=== PATIENT | female | born 1975 | race Caucasian/White ===

== ENCOUNTER 2023-04-10 07:47 | Observation (INO) ==
--- NOTE | 2023-03-20 11:55 | PAT Medication Instructions ---
Medication Instructions Date of Service March 20, 2023 Home Medications multivitamin 1 tab PO QAM triamterene 37.5 mg-hydrochlorothiazide 25 mg capsule 1 cap PO QAM Lactobacil.acidophilus-Bifido.animalis 5 billion cell sprinkle capsule (Probiotic) 2 cap PO QAM calcium carbonate 200 mg calcium (500 mg) chewable tablet (Tums) 200 mg PO BID PRN Acid Reflux loratadine 10 mg tablet (Claritin) 10 mg PO QAM semaglutide (weight loss) 2.4 mg/0.75 mL subcutaneous pen injector (Wegovy) 2.4 mg subcut Q7D Continue as directed semaglutide (weight loss) 2.4 mg/0.75 mL subcutaneous pen injector (Wegovy) 2.4 mg subcut Q7D DO NOT take the morning of surgery multivitamin 1 tab PO QAM triamterene 37.5 mg-hydrochlorothiazide 25 mg capsule 1 cap PO QAM Lactobacil.acidophilus-Bifido.animalis 5 billion cell sprinkle capsule (Probiotic) 2 cap PO QAM calcium carbonate 200 mg calcium (500 mg) chewable tablet (Tums) 200 mg PO BID PRN Acid Reflux loratadine 10 mg tablet (Claritin) 10 mg PO QAM Take evening before surgery calcium carbonate 200 mg calcium (500 mg) chewable tablet (Tums) 200 mg PO BID PRN Acid Reflux (if needed) OTHERWISE NOTHING TO EAT OR DRINK AFTER MIDNIGHT Other Notes If you have any questions please call us at [phone] or [phone] or [phone] or [phone]
--- NOTE | 2023-03-26 10:17 | History & Physical Report ---
Date of Service March 26, 2023 date of surgery: 04/10/23 Procedure: Left Total Knee Arthroplasty Surgeon: Venkat Infante Assessment & Plan (1) Arthritis of knee, left: Plan: Risks and benefits of procedure discussed in detail today, patient would like to proceed with a Left total knee replacement at [facility] as scheduled. Will place on ASA 81mg po bid x 1 month post op, f/u 2 weeks post op for routine post-operative care and x-ray, sooner if having any problems. will make arrangements for HHPT at the time of discharge, she is unsure at this time OPJ vs staying over night. At this point in time, has failed conservative measures and would like to proceed with surgical intervention. The risks and benefits have been discussed including, but not limited to, risk of infection, nerve injury, stiffness, loss of motion, failure to improve, etc. Reasonable outcomes and options of treatment were discussed. An explanation of appropriate alternatives to the procedure that may be advantageous were discussed and their risks and benefits, as well as the risks and benefits of not proceeding with treatment. I offered to answer any additional inquiries concerning the treatment involved. All the patient's questions were answered. The patient is agreeable, understanding of the treatment plan and alternatives, and wishes to proceed with the treatment plan. History of Present Illness Chief Complaint: left knee pain Primary Care Provider: Rubén Messer MD Consuelo is a pleasant 47-year-old female who presents for preop evaluation prior to her left total knee replacement scheduled for April 10. She is having pain in his knee for several months now which is gradually worsened and is now affecting her daily activities including walking and standing. She underwent viscosupplementation earlier this year with no relief. X-rays were taken which show advanced degenerative changes to the left knee with overall varus alignment. At this point time she has failed conservative measures and would like to proceed with a left total knee replacement Allergies Allergy/AdvReac Type Severity Reaction Status Date / Time No Known Allergies Allergy Verified 03/16/23 12:20 Home Medications Medication Instructions Recorded Confirmed Type multivitamin 1 tab PO QAM 02/20/22 03/16/23 History triamterene 37.5 1 cap PO QAM 02/20/22 03/16/23 History mg-hydrochlorothiazide 25 mg capsule Lactobacil.acidophilus-Bifido.animalis 2 cap PO QAM 03/16/23 03/16/23 History 5 billion cell sprinkle capsule (Probiotic) calcium carbonate 200 mg calcium 200 mg PO BID PRN Acid Reflux 03/16/23 03/16/23 History (500 mg) chewable tablet (Tums) loratadine 10 mg tablet (Claritin) 10 mg PO QAM 03/16/23 03/16/23 History semaglutide (weight loss) 2.4 2.4 mg subcut Q7D 03/16/23 03/16/23 History mg/0.75 mL subcutaneous pen injector (Wegovy) Past Med/Surg History Medical History Acid reflux Mild Arthritis Knees History of COVID-19 10/2020- fatigue, fever, loss of taste/smell > resolved Hypertension Morbid obesity Surgical History History of appendectomy History of cholecystectomy History of colonoscopy History of incisional hernia repair History of tonsillectomy and adenoidectomy [place] teeth removed Family History Other No family history of adverse response to anesthesia Social History Smoking Status: Never smoker Second Hand Exposure: Yes (as a child); Hx Alcohol Use: Yes Alcohol type: beer, wine and hard liquor Preferred Language: [place] [employer]ating [employer] Mechanic Required: No Beliefs That Will Affect Care: None Current Living Situation: Family Feels Safe at Home: Yes Safety Concerns: Feels Safe At This Time Assistive Devices: Contacts and Glasses Review of Systems Review of Systems: All systems reviewed & are unremarkable except as noted in HPI & below Constitutional: no fever, no chills and no sweats Respiratory: no cough and no dyspnea Cardiovascular: no chest pain, no dyspnea and no orthopnea Gastrointestinal: no abdominal pain, no nausea and no vomiting Musculoskeletal: as per Subjective / HPI Physical Exam Physical Exam: HT: 5ft 5.5in WT: 115 kg Constitutional: WD/WN, vitals as above no acute distress Respiratory: normal respiratory effort, lungs clear to auscultation no respiratory distress, no labored breathing and does not use accessory muscles Cardiovascular: RRR, no murmur, no edema Gastrointestinal (Abdomen): normal bowel sounds, soft, nontender, no hepatosplenomegaly Musculoskeletal: Knee: + knee abnormal to inspection (LEFT KNEE: ), + effusion (+1 effusion), + limited ROM of knee (ROM 0/3/110), + knee ROM with crepitation, + joint line tenderness (medial joint line) and + Olamide's sign positive; no deformity, no skin erythema, no ecchymosis, no valgus laxity, no varus laxity, anterior drawer test negative, Nicholas's sign negative and pivot shift test negative Results & Data Results & Data Diagnostic Findings Left Knee X-ray: left knee series confirms advanced degenerative changes to the left knee, greatest medial compartments and patellofemoral joint, showing joint space narrowing, osteophyte formation and subchondral sclerosis. no acute bony pathology noted.
--- NOTE | 2023-03-27 09:18 | Anesthesiology Consultation ---
Date of Service March 27, 2023 Assessment & Plan (1) Encounter for pre-operative examination: - COVID screening: Per assessment on 03/27: No known COVID-19 positive contacts or current COVID-19 related symptoms. Travel screen negative. Patient vaccinated. At surgeon discretion if preop Covid testing being done. - Outpatient joint assessment: Pt currently scheduled for inpatient pathway. If surgeon requests review for outpatient joint pathway, patient is an acceptable candidate for outpatient joint program from anesthesia standpoint pending surgeon's office assessment that patient is motivated, has good support and completes Same Day Joint Program preop requirements. Chart Review Chart Review: Acceptable Risk for Surgery and Patient seen in Pre Admission Testing Teaching & Discussion Pre-Anesthesia Teaching/Discussion Notes: Instructed NPO after midnight before surgery,except medications with 15 cc of water. Medication instructions provided according to the PAT guidelines. History Surgery Operation Date: 04/10/23 08:45 Proposed Procedures p Left Total Knee Arthroplasty - Venkat Infante DO Height/Weight Height: 5 ft 5.5 in Weight: 120.6 kg Allergies Allergy/AdvReac Type Severity Reaction Status Date / Time No Known Allergies Allergy Verified 03/16/23 12:20 Medications Home Medications Medication Instructions Recorded Confirmed Last Taken multivitamin 1 tab PO QAM 02/20/22 03/16/23 02/22/22 triamterene 37.5 1 cap PO QAM 02/20/22 03/16/23 02/22/22 mg-hydrochlorothiazide 25 mg capsule Lactobacil.acidophilus-Bifido.animalis 2 cap PO QAM 03/16/23 03/16/23 Unknown 5 billion cell sprinkle capsule (Probiotic) calcium carbonate 200 mg calcium 200 mg PO BID PRN Acid Reflux 03/16/23 03/16/23 Unknown (500 mg) chewable tablet (Tums) loratadine 10 mg tablet (Claritin) 10 mg PO QAM 03/16/23 03/16/23 Unknown semaglutide (weight loss) 2.4 2.4 mg subcut Q7D 03/16/23 03/16/23 Unknown mg/0.75 mL subcutaneous pen injector (Wegovy) Past Medical History Medical History Acid reflux Mild Arthritis Knees History of COVID-19 10/2020- fatigue, fever, loss of taste/smell > resolved Hypertension Morbid obesity Exercise / Class Metabolic Activity II 4-5 Yardwork/Stairs/Walk up hill Past Family History Family History Other No family history of adverse response to anesthesia Past Surgical History Surgical History History of appendectomy History of cholecystectomy History of colonoscopy History of incisional hernia repair History of tonsillectomy and adenoidectomy [place] teeth removed Past Anesthesia History No Hx of Anesthesia Complications and No Family Hx of Anesthesia Complications History of PONV No Hx of PONV and No Hx of Motion Sickness Social History Smoking Status: Never smoker Do You Dip or Chew Tobacco: No Hx Alcohol Use: Yes Alcohol type: beer, wine and hard liquor alcohol intake frequency: a few times a month Hx Substance Use: No substance use type: does not use Review of Systems Chronic seasonal allergies: post-nasal drip + watery eyes, unchanged. Patient denies chest pain, shortness of breath, dyspnea on exertion, fever, chills, cough, wheezing, palpitations. Physical Exam Vital Signs VITALS BP 131/86 P 77 TEMP 98.1 SP02 97%RA RESP 16 PHYSICAL Full cervical extension range of motion. Full TMJ range of motion. TMD 4 finger breaths Mallampati Score 2 Dentition: missing sides Lungs: clear throughout to auscultation Cardiac: regular rate and rhythm, no murmurs noted Spine: normal Carotid arteries: negative bruit Extremities: non-pitting LE edema Lab Results Anesthesia Preop Results Results Anesthesia Widget: WBC 3.82 K/ul (4.8-10.8) L 03/27/23 Hgb 12.8 g/dl (12.0-16.0) 03/27/23 Hct 38.1 % (37.0-47.0) 03/27/23 Plt 203 K/uL (130-400) 03/27/23 Na 142 mmol/L (136-145) 03/27/23 K 3.7 mmol/L (3.5-5.1) 03/27/23 Cl 110 mmol/L (98-107) H 03/27/23 CO2 28 mmol/L (21-32) 03/27/23 BUN 15 mg/dl (6-23) 03/27/23 Creat 0.91 mg/dl (0.6-1.2) 03/27/23 Glucose Level 67 mg/dl (70-99(Fasting)) L 03/27/23 PT 11.0 Seconds (9.0-12.0) 03/27/23 PTT 29.3 Seconds (21.0-31.0) 03/27/23 INR 1.0 (0.9-1.1) 03/27/23 HA1c 4.6 % (4.5-5.6) 03/27/23 Urine Color Dark Yellow 03/27/23 Urine Appearance Clear (Clear) 03/27/23 Urine pH 6.0 (4.5-7.5) 03/27/23 Urine Specific [place] 1.025 (1.000-1.030) 03/27/23 Urine Protein Negative (Negative) 03/27/23 Urine Glucose (UA) Negative (Negative) 03/27/23 Urine Ketones Trace (Negative) H 03/27/23 Urine Blood Negative (Negative) 03/27/23 Urine Nitrite Negative (Negative) 03/27/23 Urine Bilirubin Negative (Negative) 03/27/23 Urine Urobilinogen Negative (Negative) 03/27/23 Urine Leukocyte Esterase Trace (Negative) H 03/27/23 Urine WBC (Auto) 5-10 /hpf (0-5) H 03/27/23 Urine RBC (Auto) 0-4 /hpf (0-4) 03/27/23 Urine Hyaline Casts (Auto) 1-5 /lpf (0-5) 03/27/23 Urine Epithelial Cells (Auto) >30 /lpf (0-5) H 03/27/23 Urine Bacteria (Auto) 1+ (Negative) H 03/27/23 Blood Type O Positive 03/27/23 Antibody Screen NEGATIVE 03/27/23 Testing Laboratory Results *Surgeon's office made aware of low WBC + abnormal UA > preop testing forwarded to PCP* Electrocardiogram Date: 03/27/23 NSR at 67bpm. Chest X-Ray Date: 03/27/23 FINDINGS: PA and lateral chest radiographs are obtained. No prior studies are available for comparison at the time of dictation. The cardiomediastinal silhouette is unremarkable. The lungs and pleural spaces are clear. There is no pneumothorax. The bony thorax appears intact. Cholecystectomy clips are noted in the right upper quadrant. IMPRESSION: No active disease in the chest. COVID-19 Risk Screen Screening Information COVID-19 Screen Date: 03/27/23 Exposure 21 Days Family/Household +COVID Last 21 Days: No Exposure 10 Days Any COVID Exposure Last 10 Days: No Symptoms Last 10 Days Experienced COVID Sx Last 10 Days: No + COVID 0-90 Days COVID + in Last 0-90 Days: No
[~2023-04-10 07:47] MED LIST: ACETAMINOPHEN 500 MG TAB PO SCH; BUPIVACAINE 0.5 % 5 MG/1 ML PF 10ML VIAL ONE; CeleBREX 200 MG CAP PO SCH; FAMOTIDINE 20 MG TAB PO SCH; GABAPENTIN 600 MG DOSE PO SCH; LR 500ML BOLUS, THEN 15ML/HR IV SCH; METOCLOPRAMIDE HCL 10 MG TABLET PO SCH; ROPIVACAINE 0.5% 5 MG/ML 30 ML VIAL ONE; ROPIVACAINE 0.5% HCL/PF 150 MG, BUPIVACAINE 0.75% MPF 20 ML, EPINEPHrine 30MG/30ML (OR ... INFIL SCH; TRANEXAMIC ACID 1,000 MG **IV Intra-op IV SCH; TRANEXAMIC ACID 1,000 MG **IV Pre-op IV SCH; dexAMETHasone 4 MG TAB PO SCH
--- NOTE | 2023-04-10 09:14 | History & Physical Bridge Note ---
Date of Service April 10, 2023 History & Physical Bridge Note I have examined the patient, reviewed the History & Physical and in the interval since the performance of the History & Physical I have noted the following changes of clinical significance: no changes noted
[2023-04-10] MEDS ORDERED: MIDAZOLAM HCL 1 MG/ML 2ML VIAL ONE ×3 (10:38→13:30)
[2023-04-10] MEDS ORDERED: ONDANSETRON INJ 2 MG/ML 2 ML VIAL IV PRN ×2 (11:00→15:48)
[2023-04-10] MEDS ORDERED: ePHEDrine sulfate 50 MG/ML AMP IV PRN (11:00)
[2023-04-10] MEDS ORDERED: fentaNYL citrate PF 100 MCG/2 ML VIAL IV PRN (11:00)
[2023-04-10] MEDS ORDERED: ATROPINE SULFATE 0.1 MG/ML 10ML SYR IV PRN (11:00)
[2023-04-10] MEDS ORDERED: ORTHO JOINT ANESTHETIC ONE (11:10)
[2023-04-10] MEDS ORDERED: fentaNYL citrate PF 100 MCG/2 ML VIAL ONE (11:11)
[2023-04-10] MEDS ORDERED: PROPOFOL IV EMULSION 10 MG/ML 20 ML VIAL IV ONE ×2 (13:29→14:15)
--- NOTE | 2023-04-10 13:54 | Operative Report ---
Post Operative Report Pre & Post Diagnosis Operation Date: 04/10/23 10:25 Pre-Op Diagnosis: Left Knee Osteoarthritis Post-Op Diagnosis: Left Knee OsteoarthritisMorbid obesity I identified the patient and participated in the time-out.: Yes Procedure Operation Date: 04/10/23 10:25 Actual Procedures p Left Total Knee Arthroplasty, Cemented(Left)Utilizing [employer] journey 2 patient matched total knee arthroplasty size femur 6 tibia 4 poly 11 patella 32 jered - Venkat Infante DO Surgeon Venkat Infante DO Scale Manager Beny ROBERTS Estimated Blood Loss 5 Findings Consistent with Post-Op Diagnosis Patient presents with severe stage tricompartmental DJD left knee eburnated [id number] marginal osteophyte subchondral sclerosis with varus alignment and morbid obesity Specimens Bone and cartilage Drains Medium bore Hemovac Anesthesia Type MAC Spinal Regional Complications none Disposition Accompanied Patient To Recovery: No Disposition: Recovery Room Indications Patient presents with severe end-stage tricompartmental DJD no response to conservative management patient's failed attempted corticosteroid injection viscosupplementation relative rest activity modification above intraoperative findings were noted Description of Procedure After proper prepping and draping of the left lower extremity anterior midline incision was made over the region of the extensor extensor mechanism after meticulous hemostasis was obtained and maintained in subcutaneous tissues a medial parapatellar incision was made The patella was subluxed lateralward the medial lateral gutter were cleaned from any hypertrophic synovitis and scar tissue of the distal femoral block was placed and the distal femoral osteotomy cut was made subsequently the chamfers anterior and posterior osteotomy cuts were made utilizing the 4-in-1 block the tibia was subsequently subluxed ante riorward medial and ateral meniscal remnants were excised in their entirety remnants of the anterior and posterior cruciate ligaments were excised in their entirety excellent exposure of the proximal tibia was obtained the tibial osteotomy guide was placed on the proximal tibial osteotomy cut was made once again the knee was irrigated with copious amounts of sterile saline solution the patella was subsequently everted lateralward thickened scar tissue around the patella was removed the patella was subsequently cut utilizing a freehand technique and was drilled prepared for final preparation and placement of patella socially flexion-extension gaps were checked and the equal and symmetric trials were placed to the appropriate femoral and tibial trials with poly-spacer being placed for equal flexion and extension gaps and full range of motion including extension to 0 and flexion to 140 the trial components after having been taken to recovery range of motion was subsequently removed meticulous hemostasis was obtained and maintained subsequently a knee block injection of joint cocktail including ropivacaine 0.5% 150 mg. Bupivacaine 0.5% epinephrine 1-200,030 mL's toradol 30 mg dexamethasone 4 mg ketamine 10 mg clonidine 100 micrograms normal saline solution 30 mg was infiltrated into the soft tissues of the posterior knee medial lateral gutters and periosteal synovium special att ention was paid to protect neurovascular structures at all times subsequently trial components having been removed the knee was irrigated with sterile saline solution. debris was removed the proximal tibia was subsequently prepared and was made ready for the placement of the tibial component tibial component was also cemented and tamped into position the femoral component was subsequently placed and cemented in the position the patellar component was subsequently cemented in position because hemostasis once again obtained and maintained wound having been thoroughly irrigated with debridement and debridement lavage was performed as well as a medial parapatellar incision closed with #1 Vicryl in interrupted fashion subcutaneous was closed with #2 Vicryl skin was closed with skin clips. PA-C was necessary for prepping and drapping as well as wound closure of deep fascia Sub cutaneous tissue and skin and was necessary for the case. A sterile compressive dressing was placed patient was taken to recovery in stable condition of report dictated by Naresh I attest to the content of the Intraoperative Record and any orders documented therein. Any exceptions are noted below.Due to the complex nature of the procedure, the entire surgery was performed with the operational assistance ofBeny Evans and Alex Mary patient is116.9 kg with a BMI of42.2. The patient's habitus did contribute to significant technical difficulty requiring extra time. Additional help was necessary in order to position the patient safely. The use of specialized (longer, deeper) retractors and/or instruments were needed. Due to this, the procedure took20 minutes longer than the standard total knee arthroplasty."]. The school psychologist assistant, under direct supervision, was involved in the actual performance of all aspects of the surgical procedure including hemostasis, tissue retraction and incision, instrument management, patient positioning, and wound closure. I attest to the content of the Intraoperative Record and any orders documented therein. Any exceptions are noted below.
--- NOTE | 2023-04-10 15:01 | Anesthesiology Progress Note ---
Date of Service April 10, 2023 Anesthesia Post Procedure Vital Signs Vital Signs: Temp Pulse Resp BP BP Pulse Ox O2 Del Method 04/10/23 14:45 76 14 104/76 92 Nasal Cannula 04/10/23 14:35 80 13 116/71 92 Oxymask 04/10/23 14:25 78 15 106/69 92 Oxymask 04/10/23 14:18 98.6 F 80 18 106/61 96 Oxymask 04/10/23 08:20 98.1 F 75 18 111/78 97 Room Air O2 Flow Rate 04/10/23 14:45 3 04/10/23 14:35 8 04/10/23 14:25 8 04/10/23 14:18 11 04/10/23 08:20 Pain Intensity Left Knee: Pain Intensity: 4 Transfer of Care Handoff Completed per policy Notes Mental Status: alert / awake / arousable and participated in evaluation Patient Amnestic to Procedure: Yes Nausea / Vomiting: adequately controlled Pain: adequately controlled Airway Patency, RR, SpO2: stable & adequate BP & HR: stable & adequate Hydration State: stable & adequate Neuraxial Anesthesia: was administered and sensory block is resolving Anesthetic Complications: no major complications apparent and Pt Satisfied with anesthetic care
--- NOTE | 2023-04-10 15:27 | XRay Report ---
XR knee LT 1 or 2V routine CLINICAL HISTORY: Postoperative evaluation. COMPARISON: Knee radiographs August 05, 2014. FINDINGS: Alignment of the total left knee arthroplasty is anatomic. There is no periprosthetic frac ture or unexpected radiopaque foreign body. There are drains and skin haily. IMPRESSION: Expected findings following total left knee arthroplasty. ACT 112: Negative or not required by law. Electronically signed by: Sandoval Young M.D. 04/10/2023 3:26 PM
[2023-04-10] MEDS ORDERED: [UNRECOGNIZED DRUG - OTHER] SQ SCH (15:48)
[2023-04-10] MEDS ORDERED: SEMAGLUTIDE 2.4 MG/0.75 ML SQ SCH (15:48)
[2023-04-10] MEDS ORDERED: diphenhydrAMINE Capsule 25 MG CAP PO PRN (15:48)
[2023-04-10] MEDS ORDERED: oxyCODONE HCL IR 5 MG TAB (IMMEDIATE RELEASE) PO PRN (15:48)
[2023-04-10] MEDS ORDERED: NALOXONE HCL 0.4 MG/1 ML VIAL/CARP IV PRN (15:48)
[2023-04-10] MEDS ORDERED: SODIUM CHLORIDE 0.9% 1000ML 1,000 ML IV SCH (15:48)
[2023-04-10] MEDS ORDERED: HYDROmorphone INJ 1 MG/ML SYRINGE IV PRN (15:48)
[2023-04-10] MEDS ORDERED: METOCLOPRAMIDE HCL INJ 5 MG/ML 2 ML VIAL IV PRN (15:48)
[2023-04-10] MEDS ORDERED: bisacodyL 10 MG SUPP PR PRN (15:48)
[2023-04-10] MEDS ORDERED: MAGNESIUM HYDROXIDE SUSP 30 ML UDC PO PRN (15:48)
[2023-04-10] MEDS ORDERED: CALCIUM CARBONATE 500 MG CHEWABLE TAB PO PRN (15:48)
[2023-04-10] MEDS: ACETAMINOPHEN 500 MG TAB PO SCH ×2 (16:46→21:32)
[2023-04-10] MEDS: KETOROLAC TROMETHAMINE 15 MG/ML VIAL IV SCH ×2 (18:06→23:37)
[2023-04-10] MEDS: ceFAZolin 2000MG 2,000 MG/15 ML SYR IV SCH (19:52)
[2023-04-10] MEDS ORDERED: SENNA 8.6 MG TAB PO SCH (21:00)
[2023-04-10] MEDS: ASPIRIN 81 MG ECTAB PO SCH (21:32)
[2023-04-10] MEDS: DOCUSATE SODIUM 100 MG CAP PO SCH (21:32)
[2023-04-11] MEDS: ceFAZolin 2000MG 2,000 MG/15 ML SYR IV SCH (04:58)
[2023-04-11] MEDS: ACETAMINOPHEN 500 MG TAB PO SCH ×2 (05:02→13:31)
[2023-04-11] MEDS: KETOROLAC TROMETHAMINE 15 MG/ML VIAL IV SCH ×2 (05:02→12:20)
[2023-04-11 06:40] LABS: Hematocrit (blood only) 35.6 % (37.0-47.0); Hemoglobin 12.3 g/dl (12.0-16.0); Mean Corpuscular Hemoglobin 30.9 pg (25.0-34.0); Mean Corpuscular Hgb Conc 34.6 g/dL (32.0-36.0); Mean Corpuscular Volume 89.4 fL (80.0-100.0); Mean Platelet Volume 10.4 fL (9.4-12.4); Platelet Count 198 K/uL (130-400); RDW Coefficient of Variation 12.7 % (11.5-14.5); RDW Standard Deviation 41.4 fL (36.4-46.3); Red Blood Count 3.98 M/uL (4.20-5.40); White Blood Count 11.35 K/ul (4.8-10.8)
--- NOTE | 2023-04-11 07:06 | Orthopedic Progress Note ---
Date of Service April 11, 2023 Assessment & Plan (1) History of total left knee replacement: Plan: POD #1 s/p Left TKA pt/ot dvt proph with ISABEL/SCD/ASA plan for d/c home with OPPT, d/c after PT if doing well Admission and Anticipated Discharge Date Admission Date: April 10, 2023 Subjective POD #1 s/p Left TKA Review of Systems Constitutional: no fever, no chills and no sweats Respiratory: no cough and no dyspnea Cardiovascular: no chest pain and no dyspnea Gastrointestinal: no abdominal pain, no nausea and no vomiting Physical Exam Physical Exam: Vital Signs Temp 36.8 C 04/11/23 03:00 Pulse 87 04/11/23 03:00 Resp 18 04/11/23 03:00 BP 121/80 04/11/23 03:00 Pulse Ox 96 04/11/23 03:00 O2 Del Method Room Air 04/11/23 03:00 O2 Flow Rate 1 04/10/23 16:17 Intake & Output 04/10/23 04/11/23 04/11/23 18:59 06:59 18:59 Intake Total 1922.5 / 3149.167 1226.667 / 3149.16 7 Output Total 55 / 980 925 / 980 Balance 1867.5 / 2169.167 301.667 / 2169.167 Weight 116.9 kg Intake: IV 272.5 / 1249.167 976.667 / 1249.167 Lactated Ringe r's 1,000 ml @ 15 0 / 0 mls/hr IV .Q24 H ADOLFO Rx#: [id number] Sodium Chlorid e 0.9% 1000ML 1, 976.667 / 976.667 000 ml @ 100 m ls/hr IV .Q10H ADOLFO Rx#:[id number] Tranexamic Aci d / 0.7% NaCl 1, 200 / 200 000 mg In 100 ml @ 600 mls/hr IV TODAY@0600 ADOLFO Rx#:[id number] ceFAZolin 3000 MG 72.5 ml @ 130 72.5 / 72.5 mls/hr IV PREO P ADOLFO Rx#: [id number] IV Perioperative 1650 / 1650 Oral 250 / 250 Output: Urine 700 / 700 Estimated Blood Loss 5 / 5 Drain Output 50 / 275 225 / 275 Left Knee Hemo vac 50 / 275 225 / 275 Other: # Unmeasured Voi ds 1 Weight Measureme nt Method Standing Scale Constitutional: WD/WN, vitals as above Musculoskeletal: Left Leg: NVDI, calf SNT, negative elton sign. DP palpable, able to wiggle toes/ankle movement without difficulty. dressing clean dry and intact. Results & Data Vital Signs (Past 12 Hours) Vital Signs Temp Pulse Resp BP Pulse Ox O2 Del Method 04/11/23 03:00 36.8 C 87 18 121/80 96 Room Air 04/10/23 23:52 36.6 C 76 18 130/80 95 Room Air 04/10/23 20:05 36.6 C 83 18 111/61 93 Room Air Laboratory Results Laboratory Results WBC 11.35 K/ul (4.8-10.8) H 04/11/23 05:58 RBC 3.98 M/uL (4.20-5.40) L 04/11/23 05:58 Hgb 12.3 g/dl (12.0-16.0) 04/11/23 05:58 Hct 35.6 % (37.0-47.0) L 04/11/23 05:58 MCV 89.4 fL (80.0-100.0) 04/11/23 05:58 MCH 30.9 pg (25.0-34.0) 04/11/23 05:58 MCHC 34.6 g/dL (32.0-36.0) 04/11/23 05:58 RDW Std Deviation 41.4 fL (36.4-46.3) 04/11/23 05:58 RDW Coeff of Chinmay 12.7 % (11.5-14.5) 04/11/23 05:58 Plt Count 198 K/uL (130-400) 04/11/23 05:58 MPV 10.4 fL (9.4-12.4) 04/11/23 05:58 SARS-CoV-2, RNA, NAAT NEGATIVE (NEGATIVE) 04/10/23 Unknown Impressions Knee X-Ray 04/10/23 12:39 XR knee LT 1 or 2V routine CLINICAL HISTORY: Postoperative evaluation. COMPARISON: Knee radiographs August 05, 2014. FINDINGS: Alignment of the total left knee arthroplasty is anatomic. There is no periprosthetic fracture or unexpected radiopaque foreign body. There are drains and skin haily. IMPRESSION: Expected findings following total left knee arthroplasty. ACT 112: Negative or not required by law. Electronically signed by: Sandoval Young M.D. 04/10/2023 3:26 PM
[2023-04-11 07:08] LABS: BUN Creatinine Ratio 18.4 (10-20); Calcium 8.7 mg/dl (8.6-10.3); Creatinine Clr Calc Pharmacy 101.9 ml/min; Est GFR (African American) 91.3 ml/min; Est GFR (Non-African American) 78.8 ml/min; Potassium 3.4 mmol/L (3.5-5.1)
[2023-04-11] MEDS: ASPIRIN 81 MG ECTAB PO SCH (08:25)
[2023-04-11] MEDS: DOCUSATE SODIUM 100 MG CAP PO SCH (08:25)
[2023-04-11] MEDS ORDERED: ADVANCED PROBIOTIC 1250 MG CAPSULE PO SCH (09:00)
[2023-04-11] MEDS ORDERED: LORATADINE 10 MG TAB PO SCH (09:00)
[2023-04-11] MEDS ORDERED: TRIAMTERENE/HCTZ 37.5/25MG CAP PO SCH (09:00)
[2023-04-11] MEDS ORDERED: MULTIVITAMIN TAB PO SCH (09:00)
[2023-04-11] MEDS ORDERED: CeleBREX 200 MG CAP PO SCH (21:00)
--- NOTE | 2023-04-13 09:51 | Discharge Summary ---
Date of Service April 13, 2023 Admission HPI Per Admitting Provider Gris is a pleasant 47-year-old female who presents for preop evaluation prior to her left total knee replacement scheduled for April 10. She is having pain in his knee for several months now which is gradually worsened and is now affecting her daily activities including walking and standing. She underwent viscosupplementation earlier this year with no relief. X-rays were taken which show advanced degenerative changes to the left knee with overall varus alignment. At this point time she has failed conservative measures and would like to proceed with a left total knee replacement Admission Exam Per Admitting Provider Physical Exam: HT: 5ft 5.5in WT: 115 kg Constitutional: WD/WN, vitals as above no acute distress Respiratory: normal respiratory effort, lungs clear to auscultation no respiratory distress, no labored breathing and does not use accessory muscles Cardiovascular: RRR, no murmur, no edema Gastrointestinal (Abdomen): normal bowel sounds, soft, nontender, no hepatosplenomegaly Musculoskeletal: Knee: + knee abnormal to inspection (LEFT KNEE: ), + effusion (+1 effusion), + limited ROM of knee (ROM 0/3/110), + knee ROM with crepitation, + joint line tenderness (medial joint line) and + Olamide's sign positive; no deformity, no skin erythema, no ecchymosis, no valgus laxity, no varus laxity, anterior drawer test negative, Nicholas's sign negative and pivot shift test negative Principal Diagnosis left knee osteoarthritis Discharge Data Allergies Allergy/AdvReac Type Severity Reaction Status Date / Time No Known Allergies Allergy Verified 04/10/23 08:17 Procedures Performed Operation Date: 04/10/23 10:25 Actual Procedures p Left Total Knee Arthroplasty, Cemented(Left) - Venkat Celaya DO Ordered Studies 04/10/23 05:00 US - OR guided needle placemen Routine Hospital Course (1) History of total left knee replacement: Patient:GRIS ALCANTAR Admit Date:04/10/23 MR#:[id number] Att Phy:Venkat Celaya,MimiOValentin Acct ID:[id number] Elli Phy:Rubén Messer MD Date:1975 Fam Phy: Age:47 Location:3E Sex:F Room/Bed:E309-1 cc: ~ *NOTICE TO RECEIVING [employer]/AGENCY This information is strictly Confidential and protected under [place] law. [place] law prohibits you from making any further disclosure of this information unless further disclosure is expressly permitted by the written consent of the person to whom it pertains or is authorized by law. A general authorization for the release of medical or other information is not sufficient for this purpose. Hospital accepts no responsibility if the information is made available to any other person, INCLUDING THE PATIENT. Date of Service April 11, 2023 Assessment & Plan (1) History of total left knee replacement: Plan: POD #1 s/p Left TKA pt/ot dvt proph with ISABEL/SCD/ASA plan for d/c home with OPPT, d/c after PT if doing well Admission and Anticipated Discharge Date Admission Date: April 10, 2023 Subjective POD #1 s/p Left TKA Review of Systems Constitutional: no fever, no chills and no sweats Respiratory: no cough and no dyspnea Cardiovascular: no chest pain and no dyspnea Gastrointestinal: no abdominal pain, no nausea and no vomiting Physical Exam Physical Exam: Vital Signs Temp 36.8 C 04/11/23 03:00 Pulse 87 04/11/23 03:00 Resp 18 04/11/23 03:00 BP 121/80 04/11/23 03:00 Pulse Ox 96 04/11/23 03:00 O2 Del Method Room Air 04/11/23 03:00 O2 Flow Rate 1 04/10/23 16:17 Intake & Output 04/10/23 04/11/23 04/11/23 18:59 06:59 18:59Intake Total 1922.5 / 3149.167 1226.667 / 3149.16 7 Output Total 55 / 980 925 / 980 Balance 1867.5 / 2169.167 301.667 / 2169.167 Weight 116.9 kg Intake: IV 272.5 / 1249.167 976.667 / 1249.167 Lactated Ringe r's 1,000 ml @ 15 0 / 0 mls/hr IV .Q24 H ADOLFO Rx#: [id number] Sodium Chlorid e 0.9% 1000ML 1, 976.667 / 976.667 000 ml @ 100 m ls/hr IV .Q10H ADOLFO Rx#:[id number] Tranexamic Aci d / 0.7% NaCl 1, 200 / 200 000 mg In 100 ml @ 600 mls/hr IV TODAY@0600 [facility] Rx#:[id number] ceFAZolin 3000 MG 72.5 ml @ 130 72.5 / 72.5 mls/hr IV PREO P ADOLFO Rx#: [id number] IV Perioperative 1650 / 1650 Oral 250 / 250 Output: Urine 700 / 700 Estimated Blood Loss 5 / 5 Drain Output 50 / 275 225 / 275 Left Knee Hemo vac 50 / 275 225 / 275 Other: # Unmeasured Voi ds 1 Weight Measureme nt Method Standing Scale Constitutional: WD/WN, vitals as above Musculoskeletal: Left Leg: NVDI, calf SNT, negative elton sign. DP palpable, able to wiggle toes/ankle movement without difficulty. dressing clean dry and intact. Results & Data Vital Signs (Past 12 Hours) Vital Signs Temp Pulse Resp BP Pulse Ox O2 Del Method 04/11/23 03:00 36.8 C 87 18 121/80 96 Room Air 04/10/23 23:52 36.6 C 76 18 130/80 95 Room Air 04/10/23 20:05 36.6 C 83 18 111/61 93 Room Air Laboratory Results Laboratory Results WBC 11.35 K/ul (4.8-10.8) H 04/11/23 05:58 RBC 3.98 M/uL (4.20-5.40) L 04/11/23 05:58 Hgb 12.3 g/dl (12.0-16.0) 04/11/23 05:58 Hct 35.6 % (37.0-47.0) L 04/11/23 05:58 MCV 89.4 fL (80.0-100.0) 04/11/23 05:58 MCH 30.9 pg (25.0-34.0) 04/11/23 05:58 MCHC 34.6 g/dL (32.0-36.0) 04/11/23 05:58 RDW Std Deviation 41.4 fL (36.4-46.3) 04/11/23 05:58 RDW Coeff of Chinmay 12.7 % (11.5-14.5) 04/11/23 05:58 Plt Count 198 K/uL (130-400) 04/11/23 05:58 MPV 10.4 fL (9.4-12.4) 04/11/23 05:58 SARS-CoV-2, RNA, NAAT NEGATIVE (NEGATIVE) 04/10/23 Unknown Impressions Knee X-Ray 04/10/23 12:39 XR knee LT 1 or 2V routine CLINICAL HISTORY: Postoperative evaluation. COMPARISON: Knee radiographs August 05, 2014. FINDINGS: Alignment of the total left knee arthroplasty is anatomic. There is no periprosthetic fracture or unexpected radiopaque foreign body. There are drains and skin haily. IMPRESSION: Expected findings following total left knee arthroplasty. ACT 112: Negative or not required by law. Electronically signed by: Sandoval Young M.D. 04/10/2023 3:26 PM Signed By: <Electronically signed by Miguel A Chinchilla PA-C> 04/11/23 0706 <Electronically signed by Venkat Celaya DO> 04/11/23 0716 Total Time Total Time Spent Total Time Spent (In Minutes): 5 Discharge Plan Discharge Items Patient Disposition: Home - Self-Care Reason For Visit: POST OP TKA Discharge Diagnosis: Left Knee Osteoarthritis Activity: Per Instructions section Weightbearing Comment: as tolerated with walker Non-emergency contact: Surgeon Call non-emergency contact if: you have any medication questions, your pain is not controlled, your temperature is above 101.5, your wound has increased redness and your wound has increased drainage Follow-up/Referrals: Venkat Celaya DO [Surgeon] - (Follow up with Dr Celaya or his PA in 2 weeks from the day of your surgery for your first post operative day. ) Rubén Messer MD [Primary Care Provider] - Diet: Regular Addtl Attending Provider Instructions: ACTIVITY RECOMMENDATIONS: SELF CARE INSTRUCTIONS AFTER TOTAL KNEE REPLACEMENT A. You may need to continue a physical therapy program after discharge from the hospital. There are several options available to you. Your doctor will assist you in selecting the best one for you. 1. An out-patient facility 2 to 3 times a week for therapy or home therapy. 2. Continue working on all exercises taught to you in the hospital. Your goals should be to increase bending of your knee to 90 degrees and beyond and to fully straighten your knee. B. You may progress at your own pace from walking with a walker or crutches to a cane; then to no assistive devices. C. Make walking a part of your daily routine. Be up as much as comfortable with rest periods throughout the day. Rest with leg elevation is very important. Use the ice wrap frequently for the first 3-4 weeks. D. There are no restrictions on activities. You may ride in a car, shop, participate in product demonstrator and all social activities. E. Wear the long elastic stockings (ISABEL hose) 20 hours a day for 2 weeks after surgery. They can be removed several times a day for laundering and for a bath. F. You may shower, no tub baths until cleared by your doctor. SPECIAL CARE INSTRUCTIONS: VERY IMPORTANT TO READ AND REVIEW A. There are a few signs you need to watch for after you are home. Call [facility] [place] if you notice any of the followin. Increased severe knee pain. Some pain is expected especially when you exercise. 2. Increased swelling in your leg or knee; pain or swelling of the calf muscle in either lower leg. 3. Any fluid drainage from the incision. 4. Shortness of breath or chest pain. B. Please call [facility] at if you have any concerns or questions about your operation or recovery. The doctor or his nurse will return your call promptly. C. You must take antibiotics before dental work, bladder, bowel or other surgery. Your doctor will provide you with a permanent care to carry describing this precaution. IMPORTANT: * REMEMBER TO TAKE ASPIRIN, 81 MG, TWICE DAILY FOR 4 WEEKS UNLESS OTHERWISE DIRECTED. THIS IS YOUR BLOOD THINNER. * HIGH RISK PATIENTS MAY BE PRESCRIBED A STRONGER BLOOD THINNER. THIS WILL BE PROVIDED AT DISCHARGE. * CALL IF INCREASED PAIN, REDNESS, DRAINAGE OR FEVER GREATER THAT 101. * WEAR ISABEL HOSE 20 HOURS PER DAY FOR 2 WEEKS. * Pete Dressing - This is a large suction dressing covering your incision. This will help pull any excess drainage from the wound and allow your incision to heal properly. You may shower with this if you can keep the unit outside of the shower. If any bleeding or leakage is noted please call your doctor's office. This will remain on your incision for 7 days and then should be removed. This can be done yourself or by the home nursing staff if applicable. The entire unit is disposable once removed. Once removed, keep incision clean and dry. If redness or drainage is noted, please call your surgeon. . FOLLOW UP VISIT: If appointment is not already scheduled: Please call [facility] [place] to make a follow-up appointment for 2 weeks after your surgery at . Pending Studies at Discharge: No Stand-Alone Forms: My [facility], Pain - Opioid Pain Management, Smoking Cessation Medications and DC Order Prescriptions: New celecoxib [Celebrex] 200 mg capsule 200 mg PO BID 30 Days Qty: 60 0RF aspirin 81 mg tablet,delayed release (DR/EC) 81 mg PO BID 30 Days Qty: 60 0RF acetaminophen 500 mg tablet 1,000 mg PO Q8 21 Days Qty: 126 0RF cefadroxil 500 mg capsule 500 mg PO BID 14 Days Qty: 28 0RF docusate sodium 100 mg Capsule 100 mg PO BID 10 Days Qty: 20 0RF oxycodone 5 mg tablet 5 - 10 mg PO Q6H PRN (Reason: pain) Qty: 30 0RF Rx Instructions: ongoing therapy, supervising dr ethan celaya. max 6 tabs in 24 hours Continued multivitamin Tablet 1 tab PO QAM triamterene-hydrochlorothiazid 37.5-25 mg Capsule 1 cap PO QAM loratadine [Claritin] 10 mg Tablet 10 mg PO QAM Probiotic 5 billion cell Capsule, Sprinkle 2 cap PO QAM Wegovy 2.4 mg/0.75 mL Pen Injector 2.4 mg SUBCUT Q7D Patient Comments: takes on >for wt loss calcium carbonate [Tums] 200 mg calcium (500 mg) Tablet,Chewable 200 mg PO BID PRN (Reason: Acid Reflux) Discharge Orders: Discharge Order (Routine); Ordered 04/11/23 Ordered By: Miguel A Garcia/Other Patient Handouts: DVT Post Op Prevention Admission Data Admit Date/Time: 04/10/23 12:39 Attending Provider: Venkat Celaya Admit Provider: Venkat Celaya Primary Care Provider: Rubén Messer Other Interventions: Discharge Summary Assessment (RN) Last Done: 04/11/23 16:02
== END 2023-04-11 17:10 | disposition home or self-care (01) ==
LOC: ASU 07:47 → 3E 07:47